=== PATIENT | male | born 1980 | race American Indian/Alaskan Native ===

== ENCOUNTER 2018-12-25 08:35 | Emergency (ER) | payer OTHER ==
[2018-12-25] MEDS ORDERED: BOOSTRIX IM ONE (09:25)
--- NOTE | 2018-12-25 09:27 | Emergency Department Report ---
ED Laceration HPI - HPI Chief Complaint: Wound/Laceration Stated Complaint: CUT ON LFT HAND Occurred When: Today Severity: mild Tetanus Status: Not up to Date Laceration Symptoms: No Foreign Body Sensation, No Numbness, No Weakness, No Pain Other History: Patient is a 38-year-old male comes to the ER today after cutting his hand last night at work. He works on a forklift. He has a small superficial laceration to his left finger and left palm. Bleeding is controlled. Wounds are clean. Patient needs a tetanus shot. ED Review of Systems ROS: Stated complaint: CUT ON LFT HAND Other details as noted in HPI Comment: All other systems reviewed and negative ED Past Medical Hx - Past Medical History Previous Medical History?: No - Surgical History Past Surgical History?: No - Family History Family history: no significant - Social History Smoking Status: Current Every Day Smoker Substance Use Type: None Laceration Physical Exam - Exam General: Vital signs noted. No distress. Alert and acting appropriately. Laceration Exam: Yes Normal Distal CMS, No Foreign Body, No Exposed Tendon, Vessel, or Nerve, No Tendon Injury ED Course Vital Signs 12/25/18 08:44 Temperature 98 F Pulse Rate 74 Respiratory 16 Rate O2 Sat by Pulse 97 Oximetry - Laceration /Wound Repair l palm Wound Location: upper extremity Irrigated w/ Saline (ccs): 2 Betadine Prep?: Yes Wound Repaired With: Dermabond Layer Closure?: No Sterile Dressing Applied?: Yes Progress: wound cleaned repaired with steri strips and dermabond wound care instructions given l finger distal Wound Location: upper extremity Irrigated w/ Saline (ccs): 2 Betadine Prep?: Yes Wound Repaired With: Dermabond Layer Closure?: No Sterile Dressing Applied?: No Progress: wound cleaned repaired with dermabond and steri strips dressing applied tolerated well ED Medical Decision Making - Medical Decision Making Tdap given. Wounds have been cleaned and repaired and dressed. Patient is neurovascularly intact. Discharged to home with discharge instructions. Vital Signs 12/25/18 08:44 Temperature 98 F Pulse Rate 74 Respiratory 16 Rate O2 Sat by Pulse 97 Oximetry Critical care attestation.: If time is entered above; I have spent that time in minutes in the direct care of this critically ill patient, excluding procedure time. ED Disposition Clinical Impression: Laceration Disposition: DC-01 TO HOME OR SELFCARE Is pt being admited?: No Does the pt Need Aspirin: No Condition: Stable Instructions: Laceration (ED) Additional Instructions: change dressing every 12 hours wash with soap and water leave steri stips on finger frog for 24 hours once cleaned recover wound motrin or tylenol for pain tdap given today. DIET TOLERATED MEDS ORDERED TODAY IN ER FOLLOW INSTRUCTIONS ON THE BOTTLE FOLLOW UP PCP WITHIN 48 HOURS TO ENSURE YOU ARE GETTING BETTER ACTIVITY TOLERATED MOTRIN OR TYLENOL FOR PAIN OR FEVER RETURN TO THE ER FOR WORSENING SYMPTOMS NOT RELIEVED BY YOUR MEDICATIONS. Referrals: [facility] [Outside] - 3-5 Days Time of Disposition: 09:26
== END 2018-12-25 09:55 | disposition home or self-care (01) ==
LOC: ED 08:35
DX: S61.412A Laceration without foreign body of left hand, initial encounter (principal); S61.219A Laceration without foreign body of unspecified finger without damage to nail, initial encounter; F17.200 Nicotine dependence, unspecified, uncomplicated; W45.8XXA Other foreign body or object entering through skin, initial encounter; Y93.89 Activity, other specified; Y92.89 Other specified places as the place of occurrence of the external cause; Y99.8 Other external cause status
CPT/HCPCS: 90471; 90715